=== PATIENT | male | born 1960 | race Caucasian/White ===

== ENCOUNTER → 2020-01-14 | Outpatient (CLI) | payer OTHER ==
[~2020-01-14] MED LIST: ACET325 PO; ACET500 PO; ARTIFICIAL TEAR15 M2 BOTHEYES; CENTRUM SILVER1 EAC2 PO; CEPH500 PO; CYCL10 PO; GABA300 PO; GABAPENTIN600 MG PO; HYDMOR4 PO; IBU800 MG PO; MAGNESIUM PO; OMEP20ER PO; VISBIOME PROBIOTIC PO; Ventolin/Prove6.7 GM INH; XALATAN2.5 ML BOTHEYES; ZINC PO
[2020-01-14 13:25] LABS: BASOPHILS ABSOLUTE AUTO 0.11 K/mm3 (0.00-0.23); BASOPHILS PERCENT AUTO 1 % (0-2); EOSINOPHILS ABSOLUTE AUTO 0.15 K/mm3 (0.00-0.68); EOSINOPHILS PERCENT AUTO 1 % (0-6); Hematocrit 45.3 % (37.0-53.0); Hemoglobin 15.3 g/dL (13.5-17.5); IMMATURE GRAN ABSOLUTE AUTO 0.31 K/mm3 (0.00-0.10); IMMATURE GRAN PERCENT AUTO 2 % (0-1); LYMPHOCYTES ABSOLUTE AUTO 0.55 K/mm3 (0.84-5.20); LYMPHOCYTES PERCENT AUTO 3 % (21-46); MONOCYTES ABSOLUTE AUTO 0.83 K/mm3 (0.16-1.47); MONOCYTES PERCENT AUTO 4 % (4-13); Mean Corpuscular HGB 32.1 pg (26.0-34.0); Mean Corpuscular HGB Conc 33.8 g/dL (31.5-36.5); Mean Corpuscular Volume 95 fL (80-100); Mean Platelet Volume 9.5 fL (9.1-12.4); NEUTROPHILS ABSOLUTE AUTO 17.16 K/mm3 (1.96-9.15); NEUTROPHILS PERCENT AUTO 90 % (41-73); Platelet Count 208 K/mm3 (150-400); RDW Coefficient Variation 14.2 % (11.7-14.2); RDW Standard Deviation 49.6 fL (35.1-46.3); Red Blood Cell Count 4.76 M/mm3 (4.30-5.90); White Blood Cell Count 19.11 K/mm3 (4.00-11.30)
[2020-01-14 13:37] LABS: Albumin, Blood 3.4 g/dL (3.4-5.0); Albumin/Globulin Ratio 0.9 (0.8-1.8); Bilirubin, Total 1.1 mg/dL (0.1-1.0); Bun/Creatinine Ratio 12.3 (12.0-20.0); Calcium, Blood 8.5 mg/dL (8.5-10.1); Creatinine, Blood 1.3 mg/dL (0.60-1.20); Globulin, Blood 3.9 g/dL (2.2-4.0); Potassium, Blood 3.4 mmol/L (3.5-5.5); Total Protein, Blood 7.3 g/dL (6.4-8.2)
== END ==
LOC: LAB EV 13:20 → LAB SHORT 13:20
PROVIDERS: Physician Assistant Medical
DX: L03.113 Cellulitis of right upper limb (principal)
CPT/HCPCS: 80053; 85025; 87070; 87075; 87147; 87205

== ENCOUNTER → 2020-01-15 | Outpatient (CLI) | payer OTHER ==
[2020-01-15 11:02] LABS: BASOPHILS ABSOLUTE AUTO 0.05 K/mm3 (0.00-0.23); BASOPHILS PERCENT AUTO 0 % (0-2); EOSINOPHILS ABSOLUTE AUTO 0.21 K/mm3 (0.00-0.68); EOSINOPHILS PERCENT AUTO 1 % (0-6); Hemoglobin 15.4 g/dL (13.5-17.5); IMMATURE GRAN ABSOLUTE AUTO 0.21 K/mm3 (0.00-0.10); IMMATURE GRAN PERCENT AUTO 1 % (0-1); LYMPHOCYTES ABSOLUTE AUTO 0.55 K/mm3 (0.84-5.20); LYMPHOCYTES PERCENT AUTO 3 % (21-46); MONOCYTES ABSOLUTE AUTO 0.49 K/mm3 (0.16-1.47); MONOCYTES PERCENT AUTO 3 % (4-13); Mean Corpuscular HGB Conc 33.5 g/dL (31.5-36.5); Mean Corpuscular Volume 95 fL (80-100); Mean Platelet Volume 9.7 fL (9.1-12.4); NEUTROPHILS ABSOLUTE AUTO 15.99 K/mm3 (1.96-9.15); NEUTROPHILS PERCENT AUTO 91 % (41-73); Platelet Count 201 K/mm3 (150-400); RDW Coefficient Variation 14.3 % (11.7-14.2); RDW Standard Deviation 49.4 fL (35.1-46.3); Red Blood Cell Count 4.82 M/mm3 (4.30-5.90)
== END | disposition home or self-care (01) ==
LOC: LAB SHORT 10:59 → LAB EV 10:59
PROVIDERS: Physician Assistant Medical
DX: L03.113 Cellulitis of right upper limb (principal)
CPT/HCPCS: 85025

== ENCOUNTER 2020-01-16 16:43 | Inpatient (IN) | payer OTHER ==
[~2020-01-16] VITALS: Ht 172.7 cm; Wt 74.5 kg
[~2020-01-16 16:43] MED LIST changes: -ACET325 PO; -ACET500 PO; -ARTIFICIAL TEAR15 M2 BOTHEYES; -CENTRUM SILVER1 EAC2 PO; -CEPH500 PO; -CYCL10 PO; -GABAPENTIN600 MG PO; -HYDMOR4 PO; -IBU800 MG PO; -MAGNESIUM PO; -OMEP20ER PO; -VISBIOME PROBIOTIC PO; -Ventolin/Prove6.7 GM INH; -XALATAN2.5 ML BOTHEYES; -ZINC PO
[2020-01-16 17:17] LABS: BASOPHILS ABSOLUTE AUTO 0.03 K/mm3 (0.00-0.23); BASOPHILS PERCENT AUTO 0 % (0-2); EOSINOPHILS ABSOLUTE AUTO 0.21 K/mm3 (0.00-0.68); EOSINOPHILS PERCENT AUTO 1 % (0-6); Hematocrit 43.5 % (37.0-53.0); Hemoglobin 14.8 g/dL (13.5-17.5); IMMATURE GRAN ABSOLUTE AUTO 0.12 K/mm3 (0.00-0.10); IMMATURE GRAN PERCENT AUTO 1 % (0-1); LYMPHOCYTES ABSOLUTE AUTO 0.94 K/mm3 (0.84-5.20); LYMPHOCYTES PERCENT AUTO 6 % (21-46); MONOCYTES ABSOLUTE AUTO 0.64 K/mm3 (0.16-1.47); MONOCYTES PERCENT AUTO 4 % (4-13); Mean Corpuscular HGB 32.2 pg (26.0-34.0); Mean Corpuscular Volume 95 fL (80-100); Mean Platelet Volume 9.9 fL (9.1-12.4); NEUTROPHILS ABSOLUTE AUTO 14.05 K/mm3 (1.96-9.15); NEUTROPHILS PERCENT AUTO 88 % (41-73); Platelet Count 217 K/mm3 (150-400); RDW Coefficient Variation 14.1 % (11.7-14.2); RDW Standard Deviation 49.1 fL (35.1-46.3); White Blood Cell Count 15.99 K/mm3 (4.00-11.30)
[2020-01-16 17:45] LABS: Alanine Aminotransfer (ALT/SGP 24 U/L (12-78); Albumin, Blood 2.9 g/dL (3.4-5.0); Albumin/Globulin Ratio 0.7 (0.8-1.8); Alk Phos 117 U/L (50-136); Anion Gap 7 mmol/L (6-16); Aspartate Aminotrans (AST/SGOT 11 U/L (12-37); Bilirubin, Total 0.6 mg/dL (0.1-1.0); Blood Urea Nitrogen 10 mg/dL (8-24); Bun/Creatinine Ratio 9.8 (12.0-20.0); CO2, Blood 27 mmol/L (21-32); Calcium, Blood 8.9 mg/dL (8.5-10.1); Chloride, Blood 103 mmol/L (98-108); Creatinine, Blood 1.02 mg/dL (0.60-1.20); Globulin, Blood 4.2 g/dL (2.2-4.0); Glomerular Filtration Rate >60 (60-); Glucose, Blood 120 mg/dL (70-99); Potassium, Blood 3.3 mmol/L (3.5-5.5); Sodium, Blood 137 mmol/L (136-145); Total Protein, Blood 7.1 g/dL (6.4-8.2)
[2020-01-16] MEDS ORDERED: GABAPENTIN600 MG PO (20:49)
--- NOTE | 2020-01-16 22:19 | NUR ---
Transfer report from CHANGE MANAGERJEANNETTE Jiang on 59 year old MAle with rt AC cellulitis had been recieving 2 days of outpt IV abx at [place]. Await admission.
[2020-01-16] MEDS ORDERED: CYCL10 PO (23:20)
[2020-01-16] MEDS ORDERED: ACET500 PO (23:21)
[2020-01-16] MEDS ORDERED: IBU800 MG PO (23:21)
[2020-01-16] MEDS ORDERED: XALATAN2.5 ML BOTHEYES (23:23)
[2020-01-16] MEDS ORDERED: ARTIFICIAL TEAR15 M2 BOTHEYES (23:24)
[2020-01-16] MEDS ORDERED: Ventolin/Prove6.7 GM INH (23:27)
[2020-01-16] MEDS ORDERED: CENTRUM SILVER1 EAC2 PO (23:28)
[2020-01-16] MEDS ORDERED: MAGNESIUM PO (23:29)
[2020-01-16] MEDS ORDERED: ZINC PO (23:29)
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
[2020-01-17 08:20] LABS: BASOPHILS ABSOLUTE AUTO 0.06 K/mm3 (0.00-0.23); BASOPHILS PERCENT AUTO 0 % (0-2); EOSINOPHILS ABSOLUTE AUTO 0.22 K/mm3 (0.00-0.68); EOSINOPHILS PERCENT AUTO 1 % (0-6); Hematocrit 41.8 % (37.0-53.0); Hemoglobin 14.2 g/dL (13.5-17.5); IMMATURE GRAN ABSOLUTE AUTO 0.09 K/mm3 (0.00-0.10); IMMATURE GRAN PERCENT AUTO 1 % (0-1); LYMPHOCYTES ABSOLUTE AUTO 1.12 K/mm3 (0.84-5.20); LYMPHOCYTES PERCENT AUTO 7 % (21-46); MONOCYTES ABSOLUTE AUTO 0.78 K/mm3 (0.16-1.47); MONOCYTES PERCENT AUTO 5 % (4-13); Mean Corpuscular HGB 32.2 pg (26.0-34.0); Mean Corpuscular Volume 95 fL (80-100); Mean Platelet Volume 9.8 fL (9.1-12.4); NEUTROPHILS ABSOLUTE AUTO 13.55 K/mm3 (1.96-9.15); NEUTROPHILS PERCENT AUTO 86 % (41-73); Platelet Count 236 K/mm3 (150-400); RDW Coefficient Variation 14.1 % (11.7-14.2); RDW Standard Deviation 49.1 fL (35.1-46.3); Red Blood Cell Count 4.41 M/mm3 (4.30-5.90); White Blood Cell Count 15.82 K/mm3 (4.00-11.30)
[2020-01-17 08:35] LABS: Anion Gap 7 mmol/L (6-16); Blood Urea Nitrogen 7 mg/dL (8-24); Bun/Creatinine Ratio 8.2 (12.0-20.0); CO2, Blood 25 mmol/L (21-32); Calcium, Blood 8.5 mg/dL (8.5-10.1); Chloride, Blood 106 mmol/L (98-108); Creatinine, Blood 0.86 mg/dL (0.60-1.20); Glomerular Filtration Rate >60 (60-); Glucose, Blood 118 mg/dL (70-99); Potassium, Blood 3.7 mmol/L (3.5-5.5); Sodium, Blood 138 mmol/L (136-145)
[2020-01-17] MEDS ORDERED: HYDMOR4 PO (10:37)
--- NOTE | 2020-01-17 10:39 | NUR ---
MED REC NOTE HE WAS ABLE TO TELL ME ALL HIS RX INFORMATION. HE HAS NOT FILLED HIS MEDICATIONS SINCE AUGUST D/T INSURANCE CHANGE. OUT OF THE 5 RX'S HE HAS JUST SOME GABAPENTIN LEFT. ALL OTHERS ARE ALL GONE.
--- NOTE | 2020-01-17 16:55 | NUR ---
SUMMARY PT IS A/O X4, PLEASANT AFFECT. IND IN ROOM. DX R ARM CELLULITIS, FAILED OUTPT TX. R ARM IS RED/SWOLLEN/WARM, PT STATE SORE/TENDER. DR HUSTON ORDER IV TORADOL FOR PAIN CONTROL/RELIEF. ORTO HAS BEEN CONSULTED. PT HAS HAD CT, XRAY & US OF R ARM. WBC 16, HE HAS BEEN AFEBRILE T/O DAY. VSS. LR @ 100 ML/HR, IV ANTIBX ANCEF CONTINUES. HE IS A SMOKER, DECLINED [facility], HAS BEEN OUT TWICE TODAY w TO SMOKE.
--- NOTE | 2020-01-18 06:25 | NUR ---
SHIFT SUMMARY NO ACUTE CHANGES TO REPORT, PT HAS RESTED MOST OF THE NIGHT WITHOUT EVENT. SWELLING AND REDNESS IN RIGHT ARM CONTINUES TO DECREASE. PT PAIN ALSO IMPROVED AND HE HAS DECLINED ANYTHING FOR PAIN. RESTFUL NIGHT. INDEPENDENT IN THE ROOM AND AMBULATES IN HALLWAY AND OUTSIDE. IV ABX AND IVF CONTINUED PER ORDERS. BED IN LOWEST POSITION, CALL LIGHT WITHIN REACH.
[2020-01-18 07:54] LABS: BASOPHILS ABSOLUTE AUTO 0.07 K/mm3 (0.00-0.23); BASOPHILS PERCENT AUTO 1 % (0-2); EOSINOPHILS ABSOLUTE AUTO 0.39 K/mm3 (0.00-0.68); EOSINOPHILS PERCENT AUTO 4 % (0-6); Hematocrit 43.7 % (37.0-53.0); Hemoglobin 14.5 g/dL (13.5-17.5); IMMATURE GRAN ABSOLUTE AUTO 0.07 K/mm3 (0.00-0.10); IMMATURE GRAN PERCENT AUTO 1 % (0-1); LYMPHOCYTES ABSOLUTE AUTO 1.26 K/mm3 (0.84-5.20); LYMPHOCYTES PERCENT AUTO 12 % (21-46); MONOCYTES ABSOLUTE AUTO 0.61 K/mm3 (0.16-1.47); MONOCYTES PERCENT AUTO 6 % (4-13); Mean Corpuscular HGB 31.7 pg (26.0-34.0); Mean Corpuscular HGB Conc 33.2 g/dL (31.5-36.5); Mean Corpuscular Volume 95 fL (80-100); Mean Platelet Volume 9.6 fL (9.1-12.4); NEUTROPHILS ABSOLUTE AUTO 8.28 K/mm3 (1.96-9.15); NEUTROPHILS PERCENT AUTO 77 % (41-73); Platelet Count 262 K/mm3 (150-400); RDW Coefficient Variation 14.4 % (11.7-14.2); RDW Standard Deviation 50.6 fL (35.1-46.3); Red Blood Cell Count 4.58 M/mm3 (4.30-5.90); White Blood Cell Count 10.68 K/mm3 (4.00-11.30)
[2020-01-18 08:14] LABS: Alanine Aminotransfer (ALT/SGP 25 U/L (12-78); Albumin, Blood 2.4 g/dL (3.4-5.0); Albumin/Globulin Ratio 0.6 (0.8-1.8); Alk Phos 100 U/L (50-136); Anion Gap 5 mmol/L (6-16); Aspartate Aminotrans (AST/SGOT 22 U/L (12-37); Bilirubin, Total 0.4 mg/dL (0.1-1.0); Blood Urea Nitrogen 7 mg/dL (8-24); Bun/Creatinine Ratio 10.7 (12.0-20.0); CO2, Blood 27 mmol/L (21-32); Calcium, Blood 8.6 mg/dL (8.5-10.1); Chloride, Blood 109 mmol/L (98-108); Creatinine, Blood 0.65 mg/dL (0.60-1.20); Globulin, Blood 4.1 g/dL (2.2-4.0); Glomerular Filtration Rate >60 (60-); Glucose, Blood 112 mg/dL (70-99); Potassium, Blood 3.8 mmol/L (3.5-5.5); Sodium, Blood 141 mmol/L (136-145); Total Protein, Blood 6.5 g/dL (6.4-8.2)
--- NOTE | 2020-01-18 16:02 | NUR ---
PATIENT HAS BEEN FEELING BETTER SINCE STARTING THE MIDODRINE AND FLORICEF. SHE STATES SHE IS ABLE TO TOLERATE SITTING UPRIGHT FOR LONGER PERIODS OF TIME. HER VITALS APPEAR STABLE. SHE HAS HAD NO COMPLAINTS OF PAIN OR DISCOMFORT. SHE CONTINUES ON IV NUTRITION AND CONTINUES TO TRY AND EAT PO WELL. SHE CALLS APPROPRIATELY FOR STAFF ASSIST NEEDED. EDUCATIONAL INFO GIVEN TO PATIENT REGARDING THE TWO NEW MEDICATIONS. PATIENT REMAINS IN ROOM RESTING AT THIS TIME. WILL CONTINUE TO MONITOR AND PROVIDE CARE NEEDED.
--- NOTE | 2020-01-18 16:30 | NUR ---
PATIENT HAS SLEPT FOR THE MAJORITY OF THE DAY. HE WAKES UP AND ASKS TO BE DISCONNECTED FROM HIS IV AND GOES OUT TO SMOKE AND THEN GOES TO SLEEP AGAIN. PATIENTS VITALS HAVE BEEN STABLE. HE HAD A I&D AT BEDSIDE TO HIS R ARM WHICH HE APPEARED TO TOLERATE WELL. THE PATIENT CONTINUES ON IV LR'S AND IV ABX WITHOUT S/SX OF ADVERSE REACTIONS NOTED OR REPORTED. THE PATIENT HAD HIS LAST SCHEDULED DOSE OF TORODOL AT NOON. PATIENT APPEARS TO BE MANAGING THE PAIN WELL OTHERWISE. IS AT BEDSIDE. WILL CONTINUE TO MONITOR AND PROVIDE CARE NEEDED.
--- NOTE | 2020-01-19 06:21 | NUR ---
WINDER HAND SUMMARY PT A/O X4. INDEPENDENT IN ROOM. MEDICATED FOR PAIN ONCE TONIGHT FOR R ARM. DENIES NAUSEA, DIZZINIESS. SLEPT WELL TONIGHT. PT WENT OUT TO SMOKE ONCE TONIGHT. SMOKING CESSATION EDUCATION GIVEN. VSS. NO ACUTE CHANGES. DRESSING ON R ARM IS C.D.I.
--- NOTE | 2020-01-19 17:00 | NUR ---
SHIFT SUMMARY PATIENT ALERT, ORIENTED, AND INDEPENDENT IN THE ROOM THIS SHIFT. PATIENT'S SPOUSE IN THE ROOM FOR MUCH OF THIS SHIFT. PATIENT SHOWERED INDEPENDENTLY THIS SHIFT. PATIENT WALKED WITH HIS SPOUSE. PATIENT SITTING UP IN BED WATCHING TELEVISION MUCH OF THIS SHIFT. PATIENT MEDICATED FOR PAIN IN HIS RIGHT ARM. BANDAGE CHANGED THIS AM PER DOCTOR'S VERBAL ORDERS. PATIENT CURRENTLY SITTING UP IN BED, NO NEEDS AT THIS TIME.
--- NOTE | 2020-01-20 03:34 | NUR ---
SHIFT SUMMARY PATIENT HAD NO ACUTE CHANGES OBSERVED. AXO X4 AND INDEPENDENT IN ROOM AND HALLS. PIV REMAINS INTACT. IV ABX INFUSED. SCHEDULE IV TORADOL GIVEN PER EMAR FOR RIGHT ELBOW PAIN. WATCHED TV FIRST PART OF SHIFT. DENIES SOB AND N/V. VSS/AFEBRILE. COOPERATIVE WITH CARE. CALL LIGHT IN REACH. BED IN LOWEST POSITION. WILL CONTINUE TO MONITOR UNTIL DAY SHIFT NURSE ASSUMES CARE.
[2020-01-20 07:17] LABS: BASOPHILS ABSOLUTE AUTO 0.12 K/mm3 (0.00-0.23); BASOPHILS PERCENT AUTO 2 % (0-2); EOSINOPHILS ABSOLUTE AUTO 0.48 K/mm3 (0.00-0.68); EOSINOPHILS PERCENT AUTO 7 % (0-6); Hematocrit 45.8 % (37.0-53.0); Hemoglobin 14.7 g/dL (13.5-17.5); IMMATURE GRAN ABSOLUTE AUTO 0.19 K/mm3 (0.00-0.10); IMMATURE GRAN PERCENT AUTO 3 % (0-1); LYMPHOCYTES ABSOLUTE AUTO 1.63 K/mm3 (0.84-5.20); LYMPHOCYTES PERCENT AUTO 22 % (21-46); MONOCYTES ABSOLUTE AUTO 0.51 K/mm3 (0.16-1.47); MONOCYTES PERCENT AUTO 7 % (4-13); Mean Corpuscular HGB 31.5 pg (26.0-34.0); Mean Corpuscular HGB Conc 32.1 g/dL (31.5-36.5); Mean Corpuscular Volume 98 fL (80-100); Mean Platelet Volume 9.2 fL (9.1-12.4); NEUTROPHILS ABSOLUTE AUTO 4.36 K/mm3 (1.96-9.15); NEUTROPHILS PERCENT AUTO 60 % (41-73); Platelet Count 332 K/mm3 (150-400); RDW Coefficient Variation 14.2 % (11.7-14.2); RDW Standard Deviation 51.5 fL (35.1-46.3); Red Blood Cell Count 4.67 M/mm3 (4.30-5.90); White Blood Cell Count 7.29 K/mm3 (4.00-11.30)
[2020-01-20 07:31] LABS: Alanine Aminotransfer (ALT/SGP 31 U/L (12-78); Albumin, Blood 2.5 g/dL (3.4-5.0); Albumin/Globulin Ratio 0.6 (0.8-1.8); Alk Phos 100 U/L (50-136); Anion Gap 2 mmol/L (6-16); Aspartate Aminotrans (AST/SGOT 26 U/L (12-37); Bilirubin, Total 0.2 mg/dL (0.1-1.0); Blood Urea Nitrogen 9 mg/dL (8-24); Bun/Creatinine Ratio 8.6 (12.0-20.0); CO2, Blood 32 mmol/L (21-32); Calcium, Blood 8.7 mg/dL (8.5-10.1); Chloride, Blood 109 mmol/L (98-108); Creatinine, Blood 1.05 mg/dL (0.60-1.20); Globulin, Blood 4.4 g/dL (2.2-4.0); Glomerular Filtration Rate >60 (60-); Glucose, Blood 95 mg/dL (70-99); Potassium, Blood 4.6 mmol/L (3.5-5.5); Sodium, Blood 143 mmol/L (136-145); Total Protein, Blood 6.9 g/dL (6.4-8.2)
[2020-01-20] MEDS ORDERED: OMEP20ER PO (12:30)
[2020-01-20] MEDS ORDERED: ACET325 PO (12:35)
[2020-01-20] MEDS ORDERED: VISBIOME PROBIOTIC PO (12:39)
[2020-01-20] MEDS ORDERED: CEPH500 PO (12:40)
--- NOTE | 2020-01-20 13:10 | NUR ---
DISCHARGE SUMMARY PT DISCHARGING WITH . DISCHARGE INSTRUCTIONS EXPLAINED. WENT OVER WOUND CARE AND FOLLOW UP APPOINTMENTS NEEDED. NEW RX'S FAXED TO [facility]. PT VERBALIZED UNDERSTANDING. QUESTIONS ANSWERED. CURRENT PAIN LEVEL 6. PT ESCORTED OUT WITH AND THIS RN.
== END 2020-01-20 13:10 | disposition home or self-care (01) | DRG 581 ==
LOC: ER 16:43 → MEDS 22:29
PROVIDERS: Internal Medicine; Physician Assistant; ADMIT Family Medicine
PROC: 0J9G0ZZ Drainage of Right Lower Arm Subcutaneous Tissue and Fascia, Open Approach (ICD-10-PCS; principal; 2020-01-18)
DX: L03.113 Cellulitis of right upper limb (principal); E87.6 Hypokalemia; Z87.820 Personal history of traumatic brain injury; F17.210 Nicotine dependence, cigarettes, uncomplicated; G62.9 Polyneuropathy, unspecified; I83.90 Asymptomatic varicose veins of unspecified lower extremity
CPT/HCPCS: 36415; 73070; 73200; 76882; 80048; 80053; 83605; 85025; 87040; 87070; 87075; 87147; 87205; 96365; 96367; 99284-25; A9270; J0690; J1885; J2543; J3010; J3370; J7030; J7050; J7120

== ENCOUNTER 2021-03-13 14:14 | Inpatient (IN) | payer OTHER ==
[~2021-03-13] VITALS: Ht 175.3 cm; Wt 72.7 kg
[~2021-03-13 14:14] MED LIST changes: +ACET325 PO; +ACET500 PO; +ARTIFICIAL TEAR15 M2 BOTHEYES; +CENTRUM SILVER1 EAC2 PO; +CEPH500 PO; +CYCL10 PO; +GABAPENTIN600 MG PO; +HYDMOR4 PO; +IBU800 MG PO; +MAGNESIUM PO; +OMEP20ER PO; +VISBIOME PROBIOTIC PO; +Ventolin/Prove6.7 GM INH; +XALATAN2.5 ML BOTHEYES; +ZINC PO
[2021-03-13 14:40] LABS: Calcium, Ionized (POC) 1.17 mmol/L (1.10-1.46); Chloride (POC) 103 mmol/L (98-108); Creatinine (POC) 1.1 mg/dL (0.8-1.3); Glucose (ISTAT POC) 130 mg/dL (70-99); Hemoglobin (POC) 13.9 g/dL (13.5-17.5); Sodium (POC) 139 mmol/L (135-148); Total CO2 (POC) 25 mmol/L (21-32)
[2021-03-13] MEDS ORDERED: OLANZAPINE5 M1 PO (14:44)
[2021-03-13 15:02] LABS: Hematocrit 38.9 % (37.0-53.0); Mean Corpuscular HGB 31.9 pg (26.0-34.0); Mean Corpuscular HGB Conc 33.4 g/dL (31.5-36.5); Mean Corpuscular Volume 96 fL (80-100); Mean Platelet Volume 10.1 fL (9.1-12.4); Platelet Count 193 K/mm3 (150-400); RDW Coefficient Variation 13.1 % (11.7-14.2); RDW Standard Deviation 45.5 fL (35.1-46.3); Red Blood Cell Count 4.07 M/mm3 (4.30-5.90)
[2021-03-13 15:28] LABS: Alanine Aminotransfer (ALT/SGP 21 U/L (12-78); Albumin, Blood 3.3 g/dL (3.4-5.0); Albumin/Globulin Ratio 1.1 (0.8-1.8); Alk Phos 89 U/L (50-136); Anion Gap 8 mmol/L (6-16); Aspartate Aminotrans (AST/SGOT 24 U/L (12-37); Bilirubin, Total 0.6 mg/dL (0.1-1.0); Blood Urea Nitrogen 13 mg/dL (8-24); Bun/Creatinine Ratio 13.9 (12.0-20.0); CHOL/HDL RATIO 2.6; CO2, Blood 23 mmol/L (21-32); Calcium, Blood 8.7 mg/dL (8.5-10.1); Chloride, Blood 109 mmol/L (98-108); Cholesterol 146 mg/dL (50-200); Creatinine, Blood 0.93 mg/dL (0.60-1.20); Globulin, Blood 3.1 g/dL (2.2-4.0); Glomerular Filtration Rate >60 (60-); Glucose, Blood 154 mg/dL (70-99); HDL Cholesterol 57 mg/dL (>39); LDL/HDL RATIO 1.3; Low Density Lipoprotein Chol 76 mg/dL (0-110); Magnesium, Blood 1.6 mg/dL (1.6-2.4); Potassium, Blood 3.2 mmol/L (3.5-5.5); Sodium, Blood 140 mmol/L (136-145); Total Protein, Blood 6.4 g/dL (6.4-8.2); Triglycerides 67 mg/dL (30-160); Troponin I <0.015 ng/mL (0.000-0.040); Very Low Density Lipoprot Chol 13 mg/dL (6-32)
[2021-03-13 18:19] LABS: Source, Urine Catheter
[2021-03-13 18:24] LABS: Appearance, Urine Clear (Clear); Bilirubin, Urine Neg (Neg); Blood, Urine Neg (Neg); Color, Urine Yellow (P-Yellow); Glucose Qualitative, Urine Neg (Neg); Ketones, Urine Neg (Neg); Leukocyte Esterase, Urine Neg (Neg); Nitrite, Urine Neg (Neg); Protein, Urine 3+ (Neg); Urobilinogen, Urine NORM (Normal)
[2021-03-13 18:35] LABS: Base Excess Venous -2.8 mmol/L; Bicarbonate Venous 22.1 mmol/L (24.0-30.0); PCO2 Venous 42.8 mmHg (38-42); PO2 Venous 140 mmHg (38-42); pH Blood Venous 7.34 (7.34-7.37)
[2021-03-13 18:38] LABS: Amorphous Light (0-Heavy); Bacteria Rare /hpf; Red Blood Cells, Urine 0-2 /hpf (0-2); Squamous Epithelial Cells Rare /hpf (Few); White Blood Cells, Urine 0-2 /hpf (0-5)
[2021-03-13 18:41] LABS: Hematocrit 42.5 % (37.0-53.0); Hemoglobin 14.1 g/dL (13.5-17.5)
[2021-03-13 19:09] LABS: Anion Gap 6 mmol/L (6-16); Blood Urea Nitrogen 13 mg/dL (8-24); Bun/Creatinine Ratio 14.6 (12.0-20.0); CO2, Blood 22 mmol/L (21-32); Calcium, Blood 8.9 mg/dL (8.5-10.1); Chloride, Blood 111 mmol/L (98-108); Creatinine, Blood 0.89 mg/dL (0.60-1.20); Glomerular Filtration Rate >60 (60-); Glucose, Blood 152 mg/dL (70-99); Magnesium, Blood 2.1 mg/dL (1.6-2.4); Potassium, Blood 3.3 mmol/L (3.5-5.5); Sodium, Blood 139 mmol/L (136-145)
--- NOTE | 2021-03-13 19:26 | NUR ---
SUMMARY Assumed care of pt upon arrival to ICU 12 at 1634 from the systems testing laboratory technician. Pt arrived intubated. 7.5 cm ETT placed 24 cm at [facility]. Connected to ventilator. Vent settings ACVC 14/450/5/40%. SpO2 90% or greater. Per report from systems testing laboratory technician, pt went into ventricular fibrillation arrest and received approximately 5 defibrillations as well as epinephrine, amiodarone bolus, and some chest compressions- duration approx 1 minute. Per report, pt received two stents. One to proximal mid RCA and one to distal RCA. Per report, pt has perclose to femoral arteriotomy. Transvenous pacemaker present to right groin. No pacemaker spikes noted on heart monitor. Procedure sites free of hematoma or bruising. Previous leak of blood noted and assessed with heart center nurses. Pt arrived with fem stop in place at [address] Ashraf provided deflation regimen to this RN. Right foot purple, warm, strong palpable pulses present. Edema noted to BLE. RLE edema equal to LLE edema. At 1715, pt noted to be hypotensive. Dr Alcantar notified. Orders received for NS bolus. At 1730, RLE noted to be much more edematous than LLE, also unable to locate distal pulses with doppler. Fem stop at 60 mm Hg, as ordered by Dr Ashraf. Call placed to Dr Ashraf, to update on patient. Provider promptly at bedside. Fem stopped removed. Provider removed dressings to transvenous pacemaker and held pressure to arterial site. Provider remained at bedside for approx next hour while ultrasound at bedside. Replaced dressing with sondra patch and tegaderm CHG. Provider stated to keep leg elevated and keep ice on leg, frequent sensation checks and to notify him if leg gets bigger. Dopamine started at 20 mcg/kg/min per order from Dr Ashraf. This temporarily helped blood pressure. As BP started to decrease, Dr Ashraf asked for .5 epi. First dose of .5 given at 1802. Next dose at 1810. Provider ordered epinephrine drip as pt responded well to epi. Epi drip started at 5 mcg/min. Provider states goal to titrate dopamine off and support pt with epinephrine. Pt arrived with propofol at 20 mcg/kg/min. Pt also received 2 boluses of 1000 mL NS. Pt is receiving propofol at 20 mcg/kg/min at this time. Pt received a total of 6 mg IV versed per v/o Dr Ashraf as he was not tolerating RLE ultrasound well, often restless and shaking. Pt also medicated for pain. Pt's spouse, Helena, assisted with admission information. She states concern that he has recently used methamphetamine. She states she believes he smokes it as she found pipes. She states he is also stressed because they are living in a motor home and are essentially homeless. Helena visisted at bedside for approx 30 minutes before departing.
[2021-03-13 19:59] LABS: U Amphetamine Screen DETECTED; U Barbituate Screen Not Detected; U Benzodiazapine Screen Not Detected; U Buprenorphine Screen Not Detected; U Cannabinoids Screen Not Detected; U Cocaine Screen Not Detected; U Methadone Screen Not Detected; U Methamphetamine Screen DETECTED; U Opiates Screen Not Detected; U Oxycodone Screen Not Detected; U Phencyclidine Screen Not Detected; U Propoxyphene Screen Not Detected
--- NOTE | 2021-03-13 20:06 | NUR ---
Assumed care. Report recieved from [facility] RN. Pt in bed, sedated and ventilated via ETT. Vent settings: AC/VC 14/450/5/35%. PT has 18GA IV access in R & L forearms, transvenous pacer in R/groin. Pacer settings: rate 50, output 8 mA, sens 3 mV. IV pump settings: Epi 10 mcg/min, Dopamine 20 mcg/kg/min, Propofol 50 mcg/kg/min, NS 100 ml/hr. Per report pt has perclose to R/fem. Access site WNL, dressing intact, no swelling or bleeding noted. R/leg elevated with ice packs, leg measurement 16 3/4", palpable pedis/tibial pulses. Pt has bishop catheter in place, draining yellow/clear urine. EPI/propofol titrated for sedation/BP at beginning of shift, see flowsheet. No acute needs noted at this time, will continue to monitor.
[2021-03-13 21:12] LABS: SARS-Cov-2 (COVID-19) PCR, MMC NEGATIVE (NEGATIVE)
[2021-03-14 02:52] LABS: BASOPHILS ABSOLUTE AUTO 0.03 K/mm3 (0.00-0.23); BASOPHILS PERCENT AUTO 0 % (0-2); EOSINOPHILS ABSOLUTE AUTO 0.03 K/mm3 (0.00-0.68); EOSINOPHILS PERCENT AUTO 0 % (0-6); Hematocrit 36.7 % (37.0-53.0); Hemoglobin 12.7 g/dL (13.5-17.5); IMMATURE GRAN ABSOLUTE AUTO 0.03 K/mm3 (0.00-0.10); IMMATURE GRAN PERCENT AUTO 0 % (0-1); LYMPHOCYTES ABSOLUTE AUTO 0.69 K/mm3 (0.84-5.20); LYMPHOCYTES PERCENT AUTO 9 % (21-46); MONOCYTES ABSOLUTE AUTO 0.83 K/mm3 (0.16-1.47); MONOCYTES PERCENT AUTO 10 % (4-13); Mean Corpuscular HGB 33.6 pg (26.0-34.0); Mean Corpuscular HGB Conc 34.6 g/dL (31.5-36.5); Mean Corpuscular Volume 97 fL (80-100); Mean Platelet Volume 10.2 fL (9.1-12.4); NEUTROPHILS ABSOLUTE AUTO 6.53 K/mm3 (1.96-9.15); NEUTROPHILS PERCENT AUTO 80 % (41-73); NRBC ABSOLUTE 0.02 K/mm3 (0.00-0.02); NRBC Auto 0.2 /100 WBC (0.0-0.2); Platelet Count 165 K/mm3 (150-400); RDW Coefficient Variation 13.1 % (11.7-14.2); RDW Standard Deviation 46.5 fL (35.1-46.3); Red Blood Cell Count 3.78 M/mm3 (4.30-5.90); White Blood Cell Count 8.14 K/mm3 (4.00-11.30)
[2021-03-14 03:23] LABS: Magnesium, Blood 1.5 mg/dL (1.6-2.4)
[2021-03-14 04:09] LABS: Albumin, Blood 2.6 g/dL (3.4-5.0); Albumin/Globulin Ratio 0.9 (0.8-1.8); Alk Phos 74 U/L (50-136); Anion Gap 5 mmol/L (6-16); Aspartate Aminotrans (AST/SGOT 102 U/L (12-37); Bilirubin, Direct <0.1 mg/dL (0.0-0.3); Bilirubin, Total 0.9 mg/dL (0.1-1.0); Blood Urea Nitrogen 11 mg/dL (8-24); Bun/Creatinine Ratio 14.6 (12.0-20.0); CO2, Blood 25 mmol/L (21-32); Calcium, Blood 7.3 mg/dL (8.5-10.1); Chloride, Blood 104 mmol/L (98-108); Cholesterol 123 mg/dL (50-200); Creatinine, Blood 0.75 mg/dL (0.60-1.20); Globulin, Blood 2.9 g/dL (2.2-4.0); Glomerular Filtration Rate >60 (60-); Glucose, Blood 197 mg/dL (70-99); Phosphorus, Blood 1.3 mg/dL (2.5-4.9); Potassium, Blood 3.3 mmol/L (3.5-5.5); Sodium, Blood 134 mmol/L (136-145); Total Protein, Blood 5.5 g/dL (6.4-8.2)
[2021-03-14 04:12] LABS: PCO2 Arterial 44.2 mmHg (35-45); PO2 Arterial 99.8 mmHg (80-100); pH Blood Arterial 7.36 (7.35-7.45)
[2021-03-14 04:17] LABS: Alanine Aminotransfer (ALT/SGP 42 U/L (12-78)
[2021-03-14 04:32] LABS: Bilirubin, Indirect Unable to Calculate mg/dL (0.1-0.7); CHOL/HDL RATIO Unable to Calculate; LDL/HDL RATIO Unable to Calculate; Low Density Lipoprotein Chol Unable to Calculate mg/dL (0-110); Triglycerides 1826 mg/dL (30-160); Very Low Density Lipoprot Chol Unable to Calculate mg/dL (6-32)
--- NOTE | 2021-03-14 06:26 | NUR ---
Shift summary. Pt continues in bed, sedated and ventilated via ETT. Vent settings AC/VC 14/450/5/30%. 18 GA IV x2, R & L forearm. Venous pacemaker, R/groin access, pacemaker setting: rate 50, output 8 mA, sens 3 mV. IV pump settings: dobutamine 4 mcg/kg/min, Propofol 60 mcg/kg/min, Epi on SB, NS 100 ml/hr. laborer [place]chard femoral access site WNL. R/leg remained elevated throughout shift on ice for possible compartment syndrome per Dr. Ashraf. Leg measurements remained approximately the same throughout shift, last measurement 16 3/8", pulses palpable, pt withdraws from stimuli to foot. Ku catheter in place, draining yellow urine. Pt medicated throughout shift with PRN fentanyl and ativan for pain/sedation. See shift assessment for further details, will continue to monitor and report off to dayshift RN.
[2021-03-14 06:43] LABS: CHOL/HDL RATIO 2.1; Cholesterol 117 mg/dL (50-200); HDL Cholesterol 56 mg/dL (>39); LDL/HDL RATIO 0.9; Low Density Lipoprotein Chol 51 mg/dL (0-110); Triglycerides 49 mg/dL (30-160); Very Low Density Lipoprot Chol 9 mg/dL (6-32)
--- NOTE | 2021-03-14 07:15 | NUR ---
ASSUMED CARE OF PT. PT INTUBATED AND SEDATED. VENT SETTINGS AC 14/450/5/30% WITH SATS>95%. LUNG SOUNDS CLEAR T/O, NO ORAL SECRETIONS OR SECRETIONS FROM ETT. PT WITHDRAWS FROM PAINFUL STIMULATION, FAILS TO FOLLOW COMMANDS AT THIS TIME. PROPOFOL @ 55 MCG/KG/MIN. DOBUTAMINE INCREASED TO 6 MCG/KG/MIN TO MAINTAIN MAP>65. PT NSR, TRANSVENOUS PACER TO RIGHT FEM (RATE 50, OUTPUT 8.0, SENSOR 3.0). RIGHT LOWER EXTREMETY SWELLING IMPROVED, Q2H MEASUREMENTS AND CONTINUED ICE APPLICATION PER TITLE ABSTRACTOR. RIGHT CALF CURRENTLY 15 3/4 INCH (LEFT CALF 15 1/2) BILATERAL SHINS RED 2+ PITTING EDEMA BILATERAL ANKLES. PULSES WEAK BUT PALPABLE BILATERALLY, SKIN WARM TO TOUCH. ISLAS PATENT AND DRAINING TO GRAVITY. PTS UPDATED BY DR. OWEN THIS MORNING. PLAN TO ASSESS PT FOR EXTUBATION.
--- NOTE | 2021-03-14 10:52 | NUR ---
EXTUBATION PROPOFOL PLACED ON STANDBY AT 0750, VENT SWITCHED TO SPONTANEOUS @0930. PT SQUEEZING HANDS BILATERALLY. FLUTTERING EYES AND REACHING FOR TUBE. PT EXTUBATED AT 1030 TO 3L NC, SATS 100%. PT DROWSY, DISORIENTED, AND COOPERATIVE WITH CARE. DR. KOHLI AT BEDSIDE, PLAN TO REMOVE TRANSVENOUS PACER WHEN PATIENT MORE ALERT. DOBUTAMINE PLACED ON STANDBY, PT CURRENTLY NORMOTENSIVE.
--- NOTE | 2021-03-14 12:48 | NUR ---
TRANSVENOUS PACER REMOVED, DR. KOHLI APPLIED PRESSURE FOR 10 MINS. NO BLEEDING OR HEMATOMA NOTICED. DISTAL PULSES/PALLOR WNL. PT TO REMAIN SUPINE X4H. FOLLOWING THIS PERIOD PT MAY INCREASE ACTIVITY TOLERATED. PT CONTINUES TO BE DROWSY, ABLE TO FOLLOW COMMANDS AND TAKE SIPS OF WATER/SWALLOW MEDICATIONS WITHOUT DIFFICULTY.
--- NOTE | 2021-03-14 17:31 | NUR ---
ECHOCARDIOGRAM COMPLETE
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
--- NOTE | 2021-03-14 19:00 | NUR ---
Assumed care. Report received from guille MACHADO. PT sleeping in bed at this time, on room air. PT has IV access in R & L forearms. NS running at 100 ml/hr. Ku catheter in place, draining yellow/clear urine. No acute needs noted, will continue to monitor.
[2021-03-15 05:52] LABS: BASOPHILS ABSOLUTE AUTO 0.04 K/mm3 (0.00-0.23); BASOPHILS PERCENT AUTO 0 % (0-2); EOSINOPHILS ABSOLUTE AUTO 0.12 K/mm3 (0.00-0.68); EOSINOPHILS PERCENT AUTO 1 % (0-6); Hematocrit 42.6 % (37.0-53.0); Hemoglobin 14.2 g/dL (13.5-17.5); IMMATURE GRAN ABSOLUTE AUTO 0.04 K/mm3 (0.00-0.10); IMMATURE GRAN PERCENT AUTO 0 % (0-1); LYMPHOCYTES ABSOLUTE AUTO 0.95 K/mm3 (0.84-5.20); LYMPHOCYTES PERCENT AUTO 9 % (21-46); MONOCYTES ABSOLUTE AUTO 0.68 K/mm3 (0.16-1.47); MONOCYTES PERCENT AUTO 6 % (4-13); Mean Corpuscular HGB 31.6 pg (26.0-34.0); Mean Corpuscular HGB Conc 33.3 g/dL (31.5-36.5); Mean Corpuscular Volume 95 fL (80-100); Mean Platelet Volume 10.1 fL (9.1-12.4); NEUTROPHILS ABSOLUTE AUTO 9.36 K/mm3 (1.96-9.15); NEUTROPHILS PERCENT AUTO 84 % (41-73); Platelet Count 185 K/mm3 (150-400); RDW Coefficient Variation 13.2 % (11.7-14.2); RDW Standard Deviation 46.6 fL (35.1-46.3); Red Blood Cell Count 4.49 M/mm3 (4.30-5.90); White Blood Cell Count 11.19 K/mm3 (4.00-11.30)
[2021-03-15 06:34] LABS: Anion Gap 4 mmol/L (6-16); Blood Urea Nitrogen 8 mg/dL (8-24); CO2, Blood 25 mmol/L (21-32); Calcium, Blood 8.5 mg/dL (8.5-10.1); Chloride, Blood 110 mmol/L (98-108); Glomerular Filtration Rate >60 (60-); Glucose, Blood 139 mg/dL (70-99); Potassium, Blood 3.5 mmol/L (3.5-5.5); Sodium, Blood 139 mmol/L (136-145)
--- NOTE | 2021-03-15 06:39 | NUR ---
Shift summary. Pt rested quietly throughout shift, still on room air, vital signs stable. NS on standby, IV's remain in L & R forearm. Ku catheter DC'd. PT states he wants to be discharged and go home this morning. See shift assessment for further details, will continue to monitor and report off to dayshift RN.
--- NOTE | 2021-03-15 09:38 | NUR ---
0700: Pt sleeping in room, bed in low/locked position and call light in reach. VSS. 0800: Pt sleeping in room. 0900: Pt awoke and ate breakfast. Pt states under no conditions will he remain in the hospital today and requests discharge. Dr. Alcantar notified. 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
--- NOTE | 2021-03-15 10:46 | NUR ---
AMA REQUEST 0930: Pt stated he wanted to leave AMA. He agreed to wait for Dr. Ashraf to converse with him. Dr. Ashraf at bedside and had prolonged discussion with patient. Pt initially agreed with plan of care to go to PCU; as soon as MD left, pt states "I'm not doing any of that. I'm leaving as soon as my ride gets here." Therapeutic conversation was made in an attempt to convince patient to allow for greater recovery time as inpatient. Discussed high risk of , infection/sepsis, cardiac arrest, falls, blood clots including to lungs, and general risk of decompensation with patient. He verbalized that he understood all of these risks and his choice is that he is leaving against medical advice, as soon as his ride arrives. 0930: Pt was removed from monitor per his request. I assisted pt to ambulated within room; steady gait, pt went to chair and is resting in chair. Pt agreed to keep IVs in place until his ride arrives. Clutter free environment, call light in reach, and pt verbalized that he will not attempt ambulation without calling RN assistance first. Discussed pt's outpatient medication plans. He agreed to comply with the medication regimen as ordered by Dr. Ashraf, verbalizing understanding that to do otherwise could result in or disability. Dr. Ashraf notified of pt AMA status. AMA form signed by patient and witnessed by this RN. AMA form placed in pt chart and copy provided to chargemaster analyst.
[2021-03-15] MEDS ORDERED: AMLO5 PO (11:24)
[2021-03-15] MEDS ORDERED: ASPI81CH PO (11:25)
[2021-03-15] MEDS ORDERED: ATOR80 PO (11:26)
[2021-03-15] MEDS ORDERED: CLOP75 PO (11:27)
[2021-03-15] MEDS ORDERED: NITR.4SL SL (11:28)
[2021-03-15] MEDS ORDERED: HYDROMORPHONE ER8 MG PO (11:31)
--- NOTE | 2021-03-15 12:10 | NUR ---
DISCHARGED ALL D/C INSTRUCTIONS REVIEWED WITH PATIENT. CALLED PHARMACY AT [facility] FOR MEDICATIONS. PT VERBALIZED UNDERSTANDING OF ALL D/C INSTRUCTIONS AND WAS ESCORTED TO VEHICLE VIA W/C BY STAFF MEMBER. PT LEFT WITH SPOUSE W/ NO S/S OF ACUTE DISTRESS.
== END 2021-03-15 12:15 | disposition left against medical advice (07) | DRG 246 ==
LOC: ER 14:14 → ICUW 14:42
PROVIDERS: Emergency Medicine; Internal Medicine Critical Care Medicine; ADMIT Internal Medicine Cardiovascular Disease
PROC: 0BH18EZ Insertion of Endotracheal Airway into Trachea, Via Natural or Artificial Opening Endoscopic (ICD-10-PCS; principal; 2021-03-13)
PROC: 027035Z Dilation of Coronary Artery, One Artery with Two Drug-eluting Intraluminal Devices, Percutaneous Approach (ICD-10-PCS; 2021-03-13)
PROC: 4A023N7 Measurement of Cardiac Sampling and Pressure, Left Heart, Percutaneous Approach (ICD-10-PCS; 2021-03-13)
PROC: B2151ZZ Fluoroscopy of Left Heart using Low Osmolar Contrast (ICD-10-PCS; 2021-03-13)
PROC: B2111ZZ Fluoroscopy of Multiple Coronary Arteries using Low Osmolar Contrast (ICD-10-PCS; 2021-03-13)
PROC: 5A1221J Performance of Cardiac Output, Continuous, Automated (ICD-10-PCS; 2021-03-13)
PROC: 5A1935Z Respiratory Ventilation, Less than 24 Consecutive Hours (ICD-10-PCS; 2021-03-13)
DX: I21.19 ST elevation (STEMI) myocardial infarction involving other coronary artery of inferior wall (principal); I49.01 Ventricular fibrillation; J96.00 Acute respiratory failure, unspecified whether with hypoxia or hypercapnia; R57.0 Cardiogenic shock; J15.212 Pneumonia due to Methicillin resistant Staphylococcus aureus; G62.9 Polyneuropathy, unspecified; Z53.29 Procedure and treatment not carried out because of patient's decision for other reasons; Z20.822 Contact with and (suspected) exposure to COVID-19; F17.210 Nicotine dependence, cigarettes, uncomplicated; Z88.5 Allergy status to narcotic agent; Z79.899 Other long term (current) drug therapy
CPT/HCPCS: 31500; 33210; 36415; 36600; 71045; 76937; 80047; 80048; 80053; 80061; 80076; 81001; 82803; 83036; 83735; 84100; 84484; 85014; 85018; 85025; 85027; 85347; 86850; 86900; 86901; 87070; 87077; 87147; 87186; 87205; 92978; 93005; 93010; 93306; 93458; 93971; 94002; 94003; 99152; 99153; 99285-25; A9270; C1725; C1753; C1760; C1769; C1874; C1887; C1894; C9113; C9606; J0171; J0282; J1250; J1265; J1644; J1650; J2060; J2250; J2370; J2704; J3010; J3246; J3480; J7030; J7050; J7060; Q9967; U0004